=== PATIENT | female | born 1945 | race Caucasian/White ===

== ENCOUNTER 2020-01-29 12:58 | Inpatient (IN) | payer MEDICARE ==
[~2020-01-29] VITALS: Ht 167.6 cm; Wt 51.3 kg
[2020-01-29 15:28] VITALS: BP 180/77
[2020-01-29 16:43] LABS: BASOPHILS % 0.3 % (0.0-1.0); HEMATOCRIT 34.9 % (34.2-44.1); HEMOGLOBIN 11.7 g/dL (12.0-16.0); LYMPHOCYTES # (AUTO) 1.4 (1.0-3.2); LYMPHOCYTES % 18.8 % (18.0-39.1); MEAN CORPUSCULAR HEMOGLOBIN 30.8 pg (28-32); MEAN CORPUSCULAR HGB CONC 33.5 g/dL (31-35); MEAN CORPUSCULAR VOLUME 91.8 fL (81-99); MONOCYTES # (AUTO) 0.2 (0.2-0.8); MONOCYTES % 2.2 % (4.4-11.3); NEUTROPHILS % 78.2 % (38.7-80.0); PLATELET COUNT 222 x10e3/uL (140-360); RED CELL DISTRIBUTION WIDTH 12.7 % (11.7-14.4)
[2020-01-29 17:04] LABS: ALANINE AMINOTRANSFERASE 14 IU/L (0-55); ALBUMIN 4.3 g/dL (3.5-5.0); ALBUMIN/GLOBULIN RATIO 1.5 (0.8-2.0); ALKALINE PHOSPHATASE 24 IU/L (40-150); ANION GAP 15.4 mmol/L (8-16); BLOOD UREA NITROGEN 11 mg/dL (7-26); BUN/CREATININE RATIO 13 (6-25); CALCIUM 9.3 mg/dL (8.4-10.2); CARBON DIOXIDE 23 mmol/L (22-29); CHLORIDE 102 mmol/L (98-107); CREATININE, SERUM 0.84 mg/dL (0.57-1.11); EST GLOMERULAR FILTRATION RATE > 60 ML/MIN (60-); GLUCOSE 125 mg/dL (74-118); POTASSIUM 4.4 mmol/L (3.5-5.1); SODIUM 136 mmol/L (136-145)
[2020-01-29 17:27] LABS: ERYTHROCYTE SEDIMENTATION RATE 18 mm/hr (0-20)
[2020-01-29] MEDS ORDERED: ACETAMINOPHEN 325 MG TAB PO PRN (17:30)
[2020-01-29 18:05] VITALS: BP 180/77
[2020-01-29] MEDS ORDERED: METOPROLOL SUCC25 MG PO (18:18)
[2020-01-29] MEDS ORDERED: LEVOTHYROXINE50 MCG PO (18:18)
[2020-01-29] MEDS ORDERED: CENTRUM CHEWAB1 EAC1 PO (18:18)
[2020-01-29] MEDS ORDERED: LOSARTAN POTASS25 MG PO (18:18)
[2020-01-29] MEDS ORDERED: ACETAMINOPHEN325 M1 PO (18:18)
[2020-01-29] MEDS ORDERED: HYDROXYCHLOROQ200 MG PO (18:18)
[2020-01-29] MEDS ORDERED: CALCIUM CARBON500 MG PO (18:18)
[2020-01-29] MEDS ORDERED: REMICADE100 MG/VIA (18:18)
[2020-01-29] MEDS ORDERED: ZYRTEC10 MG PO (18:18)
[2020-01-29] MEDS ORDERED: PANTOPRAZOLE SO40 MG PO (18:18)
[2020-01-29] MEDS ORDERED: PROLIA60 MG/1 ML (18:18)
[2020-01-29] MEDS ORDERED: PREDNISONE5 MG PO (18:18)
[2020-01-29] MEDS ORDERED: DEXTROSE 5% IV PRN (19:15)
[2020-01-29] MEDS: SODIUM CHLORIDE 0.45% 1,000 ML IV SCH (19:20)
[2020-01-29] MEDS: DIPHENHYDRAMINE HCL INJ 50 MG/ML VIAL IV SCH (20:06)
[2020-01-29 20:13] VITALS: BP 189/77
[2020-01-29 21:00] VITALS: BP 174/74
[2020-01-29] MEDS: AMPHOTERICIN B IV SCH (21:00)
[2020-01-29] MEDS: DEXTROSE 5% IV SCH (21:00)
[2020-01-29] MEDS: NIFEDIPINE CR 30 MG TAB PO SCH (22:15)
[2020-01-29] MEDS: HYDROCODONE/APAP 5MG-325MG TAB PO PRN (22:15)
[2020-01-29] MEDS ORDERED: MELATONIN 5 MG TABLET PO PRN (23:45)
[2020-01-29] MEDS ORDERED: DOCUSATE SODIUM 100 MG CAP PO PRN (23:45)
[2020-01-29] MEDS ORDERED: HYDRALAZINE HCL 20 MG/ML VIAL IV PRN (23:45)
[2020-01-29 23:55] VITALS: BP 176/78
[2020-01-30 05:08] VITALS: BP 136/65
[2020-01-30] MEDS: HYDROCODONE/APAP 5MG-325MG TAB PO PRN ×2 (05:10→10:33)
[2020-01-30 06:19] LABS: BASOPHILS % 0.2 % (0.0-1.0); EOSINOPHILS % 0.2 % (0.0-6.0); HEMATOCRIT 35.7 % (34.2-44.1); HEMOGLOBIN 12.6 g/dL (12.0-16.0); LYMPHOCYTES # (AUTO) 3.8 (1.0-3.2); LYMPHOCYTES % 38.2 % (18.0-39.1); MEAN CORPUSCULAR HEMOGLOBIN 33.3 pg (28-32); MEAN CORPUSCULAR HGB CONC 35.3 g/dL (31-35); MEAN CORPUSCULAR VOLUME 94.4 fL (81-99); MONOCYTES % 9.8 % (4.4-11.3); NEUTROPHILS # (AUTO) 5.1 (2.1-6.9); NEUTROPHILS % 51.2 % (38.7-80.0); PLATELET COUNT 206 x10e3/uL (140-360); RED BLOOD COUNT 3.78 x10e6/uL (3.6-5.1)
[2020-01-30 06:31] LABS: ALANINE AMINOTRANSFERASE 14 IU/L (0-55); ALBUMIN 4.3 g/dL (3.5-5.0); ALBUMIN/GLOBULIN RATIO 1.7 (0.8-2.0); ALKALINE PHOSPHATASE 23 IU/L (40-150); ANION GAP 14.8 mmol/L (8-16); BLOOD UREA NITROGEN 12 mg/dL (7-26); BUN/CREATININE RATIO 16 (6-25); CALCIUM 9.1 mg/dL (8.4-10.2); CARBON DIOXIDE 25 mmol/L (22-29); CHLORIDE 103 mmol/L (98-107); CREATININE, SERUM 0.75 mg/dL (0.57-1.11); EST GLOMERULAR FILTRATION RATE > 60 ML/MIN (60-); GLUCOSE 72 mg/dL (74-118); MAGNESIUM 1.9 MG/DL (1.3-2.1); POTASSIUM 3.8 mmol/L (3.5-5.1); SODIUM 139 mmol/L (136-145)
[2020-01-30] MEDS: LEVOTHYROXINE SODIUM 50 MCG TAB PO SCH (06:40)
[2020-01-30 07:16] VITALS: BP 152/63
[2020-01-30] MEDS ORDERED: PANTOPRAZOLE SOD 40 MG TABEC PO SCH (07:30)
[2020-01-30] MEDS: SODIUM CHLORIDE 0.45% 1,000 ML IV SCH (08:20)
[2020-01-30] MEDS: HYDROXYCHLOROQUINE SULFATE 200 MG TAB PO SCH (08:56)
[2020-01-30] MEDS: LOSARTAN POTASSIUM 25 MG TAB PO SCH (08:56)
[2020-01-30] MEDS: NIFEDIPINE CR 30 MG TAB PO SCH (08:57)
[2020-01-30] MEDS ORDERED: METOPROLOL SUCCINATE 25 MG TAB XL PO SCH (09:00)
[2020-01-30] MEDS ORDERED: PREDNISONE 5 MG TAB PO SCH (09:00)
[2020-01-30] MEDS: PREDNISONE 5 MG TAB PO SCH (09:00)
[2020-01-30 11:01] VITALS: BP 131/55
[2020-01-30] MEDS: PANTOPRAZOLE SOD 40 MG TABEC PO SCH (11:07)
[2020-01-30 15:36] VITALS: BP 141/64
[2020-01-30] MEDS: DIPHENHYDRAMINE HCL INJ 50 MG/ML VIAL IV SCH (16:39)
[2020-01-30] MEDS: DEXTROSE 5% IV SCH (17:33)
[2020-01-30] MEDS: AMPHOTERICIN B IV SCH (17:33)
[2020-01-30] MEDS: HYDROCODONE/APAP 7.5MG-325MG 1 EA TAB PO PRN (18:00)
[2020-01-30 19:55] VITALS: BP 130/53
[2020-01-30 19:57] VITALS: BP 130/53
[2020-01-30] MEDS: METOPROLOL SUCCINATE 25 MG TAB XL PO SCH (20:15)
[2020-01-30] MEDS: LORATADINE 10 MG TAB PO SCH (20:15)
[2020-01-31] VITALS (8 sets, daily range): BP systolic 95–131; BP diastolic 48–75
[2020-01-31] MEDS: SODIUM CHLORIDE 0.45% 1,000 ML IV SCH ×2 (02:28→22:28)
[2020-01-31 05:08] LABS: BASOPHILS % 0.1 % (0.0-1.0); EOSINOPHILS # (AUTO) 0.1 (0.0-0.4); EOSINOPHILS % 0.5 % (0.0-6.0); HEMATOCRIT 30.8 % (34.2-44.1); HEMOGLOBIN 10.4 g/dL (12.0-16.0); LYMPHOCYTES # (AUTO) 3.6 (1.0-3.2); LYMPHOCYTES % 38.4 % (18.0-39.1); MEAN CORPUSCULAR HEMOGLOBIN 31.3 pg (28-32); MEAN CORPUSCULAR HGB CONC 33.8 g/dL (31-35); MEAN CORPUSCULAR VOLUME 92.8 fL (81-99); MONOCYTES % 10.3 % (4.4-11.3); NEUTROPHILS # (AUTO) 4.7 (2.1-6.9); NEUTROPHILS % 50.4 % (38.7-80.0); PLATELET COUNT 199 x10e3/uL (140-360); RED BLOOD COUNT 3.32 x10e6/uL (3.6-5.1); RED CELL DISTRIBUTION WIDTH 12.7 % (11.7-14.4)
[2020-01-31] MEDS: LEVOTHYROXINE SODIUM 50 MCG TAB PO SCH (05:21)
[2020-01-31 05:27] LABS: ALANINE AMINOTRANSFERASE 13 IU/L (0-55); ALBUMIN 3.8 g/dL (3.5-5.0); ALBUMIN/GLOBULIN RATIO 1.7 (0.8-2.0); ALKALINE PHOSPHATASE 23 IU/L (40-150); ANION GAP 10.3 mmol/L (8-16); BLOOD UREA NITROGEN 11 mg/dL (7-26); BUN/CREATININE RATIO 15 (6-25); CALCIUM 8.7 mg/dL (8.4-10.2); CARBON DIOXIDE 26 mmol/L (22-29); CHLORIDE 104 mmol/L (98-107); CREATININE, SERUM 0.72 mg/dL (0.57-1.11); EST GLOMERULAR FILTRATION RATE > 60 ML/MIN (60-); GLUCOSE 79 mg/dL (74-118); POTASSIUM 4.3 mmol/L (3.5-5.1); SODIUM 136 mmol/L (136-145)
[2020-01-31] MEDS: HYDROCODONE/APAP 7.5MG-325MG 1 EA TAB PO PRN ×4 (07:12→20:30)
[2020-01-31] MEDS: HYDROXYCHLOROQUINE SULFATE 200 MG TAB PO SCH (09:00)
[2020-01-31] MEDS: PREDNISONE 5 MG TAB PO SCH (09:00)
[2020-01-31] MEDS: NIFEDIPINE CR 30 MG TAB PO SCH (09:00)
[2020-01-31] MEDS: LOSARTAN POTASSIUM 25 MG TAB PO SCH (09:00)
[2020-01-31] MEDS: PANTOPRAZOLE SOD 40 MG TABEC PO SCH (11:30)
[2020-01-31] MEDS: DIPHENHYDRAMINE HCL INJ 50 MG/ML VIAL IV SCH (16:00)
[2020-01-31] MEDS: ENOXAPARIN SOD INJ 40 MG/0.4 ML SYR SC SCH (16:49)
[2020-01-31] MEDS: DEXTROSE 5% IV SCH (17:00)
[2020-01-31] MEDS: AMPHOTERICIN B IV SCH (17:00)
[2020-01-31] MEDS: LORATADINE 10 MG TAB PO SCH (20:39)
[2020-01-31] MEDS: METOPROLOL SUCCINATE 25 MG TAB XL PO SCH (21:00)
[2020-02-01] VITALS (8 sets, daily range): BP systolic 116–148; BP diastolic 55–68
[2020-02-01] MEDS: SODIUM CHLORIDE 0.45% 1,000 ML IV SCH ×2 (01:21→17:40)
[2020-02-01] MEDS: HYDROCODONE/APAP 7.5MG-325MG 1 EA TAB PO PRN ×3 (02:24→19:43)
[2020-02-01] MEDS: LEVOTHYROXINE SODIUM 50 MCG TAB PO SCH (05:22)
[2020-02-01 05:40] LABS: BASOPHILS % 0.1 % (0.0-1.0); EOSINOPHILS # (AUTO) 0.1 (0.0-0.4); EOSINOPHILS % 0.6 % (0.0-6.0); HEMATOCRIT 31.8 % (34.2-44.1); HEMOGLOBIN 10.5 g/dL (12.0-16.0); LYMPHOCYTES # (AUTO) 3.6 (1.0-3.2); LYMPHOCYTES % 35.4 % (18.0-39.1); MEAN CORPUSCULAR HEMOGLOBIN 30.9 pg (28-32); MEAN CORPUSCULAR VOLUME 93.5 fL (81-99); MONOCYTES # (AUTO) 1.1 (0.2-0.8); MONOCYTES % 11.2 % (4.4-11.3); NEUTROPHILS # (AUTO) 5.3 (2.1-6.9); NEUTROPHILS % 52.3 % (38.7-80.0); PLATELET COUNT 205 x10e3/uL (140-360); RED CELL DISTRIBUTION WIDTH 12.8 % (11.7-14.4)
[2020-02-01 06:21] LABS: ALANINE AMINOTRANSFERASE 15 IU/L (0-55); ALBUMIN 3.4 g/dL (3.5-5.0); ALBUMIN/GLOBULIN RATIO 1.3 (0.8-2.0); ALKALINE PHOSPHATASE 22 IU/L (40-150); ANION GAP 10.5 mmol/L (8-16); BLOOD UREA NITROGEN 11 mg/dL (7-26); BUN/CREATININE RATIO 14 (6-25); CALCIUM 8.8 mg/dL (8.4-10.2); CARBON DIOXIDE 28 mmol/L (22-29); CHLORIDE 104 mmol/L (98-107); CREATININE, SERUM 0.76 mg/dL (0.57-1.11); EST GLOMERULAR FILTRATION RATE > 60 ML/MIN (60-); GLUCOSE 78 mg/dL (74-118); POTASSIUM 4.5 mmol/L (3.5-5.1); SODIUM 138 mmol/L (136-145)
[2020-02-01] MEDS: NIFEDIPINE CR 30 MG TAB PO SCH (09:00)
[2020-02-01] MEDS: PREDNISONE 5 MG TAB PO SCH (09:00)
[2020-02-01] MEDS: HYDROXYCHLOROQUINE SULFATE 200 MG TAB PO SCH (09:00)
[2020-02-01] MEDS: LOSARTAN POTASSIUM 25 MG TAB PO SCH (09:00)
[2020-02-01] MEDS: PANTOPRAZOLE SOD 40 MG TABEC PO SCH (11:30)
[2020-02-01] MEDS: DIPHENHYDRAMINE HCL INJ 50 MG/ML VIAL IV SCH (16:00)
[2020-02-01] MEDS: ENOXAPARIN SOD INJ 40 MG/0.4 ML SYR SC SCH (16:43)
[2020-02-01] MEDS: DEXTROSE 5% IV SCH (17:00)
[2020-02-01] MEDS: AMPHOTERICIN B IV SCH (17:00)
[2020-02-01] MEDS: METOPROLOL SUCCINATE 25 MG TAB XL PO SCH (21:00)
[2020-02-01] MEDS: LORATADINE 10 MG TAB PO SCH (21:00)
[2020-02-02] VITALS (8 sets, daily range): BP systolic 124–158; BP diastolic 46–68
[2020-02-02] MEDS: HYDROCODONE/APAP 7.5MG-325MG 1 EA TAB PO PRN ×4 (01:30→21:45)
[2020-02-02] MEDS: DEXTROSE 5% IV SCH ×2 (02:43→17:00)
[2020-02-02] MEDS: AMPHOTERICIN B IV SCH ×2 (02:43→17:00)
[2020-02-02] MEDS: LEVOTHYROXINE SODIUM 50 MCG TAB PO SCH (07:30)
[2020-02-02 08:53] LABS: BASOPHILS % 0.3 % (0.0-1.0); EOSINOPHILS # (AUTO) 0.1 (0.0-0.4); EOSINOPHILS % 0.7 % (0.0-6.0); HEMATOCRIT 35.1 % (34.2-44.1); HEMOGLOBIN 11.5 g/dL (12.0-16.0); LYMPHOCYTES # (AUTO) 5.3 (1.0-3.2); LYMPHOCYTES % 49.7 % (18.0-39.1); MEAN CORPUSCULAR HEMOGLOBIN 30.9 pg (28-32); MEAN CORPUSCULAR HGB CONC 32.8 g/dL (31-35); MEAN CORPUSCULAR VOLUME 94.4 fL (81-99); MONOCYTES % 9.1 % (4.4-11.3); NEUTROPHILS # (AUTO) 4.3 (2.1-6.9); NEUTROPHILS % 39.8 % (38.7-80.0); PLATELET COUNT 225 x10e3/uL (140-360); RED BLOOD COUNT 3.72 x10e6/uL (3.6-5.1); RED CELL DISTRIBUTION WIDTH 12.7 % (11.7-14.4)
[2020-02-02] MEDS: LOSARTAN POTASSIUM 25 MG TAB PO SCH (09:00)
[2020-02-02] MEDS: NIFEDIPINE CR 30 MG TAB PO SCH (09:00)
[2020-02-02] MEDS: PREDNISONE 5 MG TAB PO SCH (09:00)
[2020-02-02] MEDS: HYDROXYCHLOROQUINE SULFATE 200 MG TAB PO SCH (09:00)
[2020-02-02] MEDS: PANTOPRAZOLE SOD 40 MG TABEC PO SCH ×2 (09:16→13:00)
[2020-02-02 09:26] LABS: ALANINE AMINOTRANSFERASE 19 IU/L (0-55); ALBUMIN 3.7 g/dL (3.5-5.0); ALBUMIN/GLOBULIN RATIO 1.2 (0.8-2.0); ALKALINE PHOSPHATASE 25 IU/L (40-150); ANION GAP 11.9 mmol/L (8-16); BLOOD UREA NITROGEN 13 mg/dL (7-26); BUN/CREATININE RATIO 14 (6-25); CALCIUM 9.1 mg/dL (8.4-10.2); CARBON DIOXIDE 29 mmol/L (22-29); CHLORIDE 101 mmol/L (98-107); EST GLOMERULAR FILTRATION RATE > 60 ML/MIN (60-); GLUCOSE 98 mg/dL (74-118); POTASSIUM 3.9 mmol/L (3.5-5.1); SODIUM 138 mmol/L (136-145)
[2020-02-02] MEDS: SODIUM CHLORIDE 0.45% 1,000 ML IV SCH (14:28)
[2020-02-02] MEDS: DIPHENHYDRAMINE HCL INJ 50 MG/ML VIAL IV SCH (16:00)
[2020-02-02] MEDS: ENOXAPARIN SOD INJ 40 MG/0.4 ML SYR SC SCH (16:16)
[2020-02-02] MEDS: LORATADINE 10 MG TAB PO SCH (20:19)
[2020-02-02] MEDS: METOPROLOL SUCCINATE 25 MG TAB XL PO SCH (20:20)
[2020-02-03] VITALS (8 sets, daily range): BP systolic 113–151; BP diastolic 54–80
[2020-02-03] MEDS: HYDROCODONE/APAP 7.5MG-325MG 1 EA TAB PO PRN ×4 (03:55→22:18)
[2020-02-03] MEDS: LEVOTHYROXINE SODIUM 50 MCG TAB PO SCH (06:58)
[2020-02-03 07:35] LABS: BASOPHILS % 0.2 % (0.0-1.0); EOSINOPHILS # (AUTO) 0.1 (0.0-0.4); EOSINOPHILS % 0.4 % (0.0-6.0); HEMOGLOBIN 11.4 g/dL (12.0-16.0); LYMPHOCYTES # (AUTO) 4.2 (1.0-3.2); MEAN CORPUSCULAR HEMOGLOBIN 31.4 pg (28-32); MEAN CORPUSCULAR HGB CONC 33.5 g/dL (31-35); MEAN CORPUSCULAR VOLUME 93.7 fL (81-99); MONOCYTES # (AUTO) 1.2 (0.2-0.8); MONOCYTES % 10.2 % (4.4-11.3); NEUTROPHILS # (AUTO) 6.5 (2.1-6.9); NEUTROPHILS % 53.7 % (38.7-80.0); PLATELET COUNT 204 x10e3/uL (140-360); RED BLOOD COUNT 3.63 x10e6/uL (3.6-5.1); RED CELL DISTRIBUTION WIDTH 12.5 % (11.7-14.4)
[2020-02-03 08:04] LABS: ALBUMIN 3.4 g/dL (3.5-5.0); ALBUMIN/GLOBULIN RATIO 1.3 (0.8-2.0); ANION GAP 11.9 mmol/L (8-16); CALCIUM 8.8 mg/dL (8.4-10.2); CREATININE, SERUM 0.95 mg/dL (0.57-1.11); POTASSIUM 3.9 mmol/L (3.5-5.1)
[2020-02-03] MEDS: HYDROXYCHLOROQUINE SULFATE 200 MG TAB PO SCH (08:55)
[2020-02-03] MEDS: LOSARTAN POTASSIUM 25 MG TAB PO SCH (08:55)
[2020-02-03] MEDS: NIFEDIPINE CR 30 MG TAB PO SCH (08:56)
[2020-02-03] MEDS: PREDNISONE 5 MG TAB PO SCH (08:56)
[2020-02-03] MEDS: PANTOPRAZOLE SOD 40 MG TABEC PO SCH (11:45)
[2020-02-03] MEDS: SODIUM CHLORIDE 0.45% 1,000 ML IV SCH (11:45)
[2020-02-03] MEDS: DIPHENHYDRAMINE HCL INJ 50 MG/ML VIAL IV SCH (17:49)
[2020-02-03] MEDS: AMPHOTERICIN B IV SCH (18:01)
[2020-02-03] MEDS: DEXTROSE 5% IV SCH (18:01)
[2020-02-03] MEDS: ENOXAPARIN SOD INJ 40 MG/0.4 ML SYR SC SCH (18:10)
[2020-02-03] MEDS: METOPROLOL SUCCINATE 25 MG TAB XL PO SCH (20:26)
[2020-02-03] MEDS: LORATADINE 10 MG TAB PO SCH (20:26)
[2020-02-04] VITALS: BP 127/91
[2020-02-04 04:00] VITALS: BP 147/74
[2020-02-04] MEDS: HYDROCODONE/APAP 7.5MG-325MG 1 EA TAB PO PRN (04:20)
[2020-02-04] MEDS: SODIUM CHLORIDE 0.45% 1,000 ML IV SCH (05:52)
[2020-02-04] MEDS: LEVOTHYROXINE SODIUM 50 MCG TAB PO SCH (06:30)
[2020-02-04 08:00] VITALS: BP 132/60
[2020-02-04] MEDS ORDERED: VORICONAZOLE200 MG PO (08:22)
[2020-02-04] MEDS: PREDNISONE 5 MG TAB PO SCH (08:40)
[2020-02-04] MEDS: HYDROXYCHLOROQUINE SULFATE 200 MG TAB PO SCH (08:40)
[2020-02-04] MEDS: LOSARTAN POTASSIUM 25 MG TAB PO SCH (08:40)
[2020-02-04] MEDS: NIFEDIPINE CR 30 MG TAB PO SCH (08:40)
[2020-02-28] MEDS ORDERED: AMPHOTERICIN B LIPID COMPLEX IV SCH (21:00)
== END 2020-02-04 09:52 | disposition home or self-care (01) | DRG 868 ==
LOC: MED/SURG2 14:38
PROVIDERS: ADMIT Internal Medicine; ATTEND Internal Medicine
DX: B42.9 Sporotrichosis, unspecified (principal); D84.9 Immunodeficiency, unspecified; M06.9 Rheumatoid arthritis, unspecified; I10 Essential (primary) hypertension; Z11.59 Encounter for screening for other viral diseases
CPT/HCPCS: 36415; 71046; 80053; 83735; 85025; 85651; 86140; 87040; J0285; J1200; J1650; J7512; U0002

== ENCOUNTER 2020-09-22 11:54 | Inpatient (IN) | payer MEDICARE ==
[~2020-09-22] VITALS: Ht 167.6 cm; Wt 51.3 kg
[~2020-09-22 11:54] MED LIST: ACETAMINOPHEN325 M1 PO; CALCIUM CARBON500 MG PO; CENTRUM CHEWAB1 EAC1 PO; HYDROXYCHLOROQ200 MG PO; LEVOTHYROXINE50 MCG PO; LOSARTAN POTASS25 MG PO; METOPROLOL SUCC25 MG PO; PANTOPRAZOLE SO40 MG PO; PREDNISONE5 MG PO; PROLIA60 MG/1 ML; REMICADE100 MG/VIA; VORICONAZOLE200 MG PO; ZYRTEC10 MG PO
[2020-09-22] MEDS ORDERED: SODIUM CHLORIDE 0.9% 1000ML 1,000 ML IV STA ×2 (12:15→12:26)
[2020-09-22] MEDS ORDERED: FENTANYL CITRATE/PF 100MCG/2 ML INJ IV NR (12:15)
[2020-09-22 12:36] LABS: BASOPHILS % 0.3 % (0.0-1.0); EOSINOPHILS % 0.2 % (0.0-6.0); HEMATOCRIT 40.1 % (34.2-44.1); HEMOGLOBIN 13.5 g/dL (12.0-16.0); LYMPHOCYTES # (AUTO) 2.5 (1.0-3.2); MEAN CORPUSCULAR HEMOGLOBIN 31.8 pg (28-32); MEAN CORPUSCULAR HGB CONC 33.7 g/dL (31-35); MEAN CORPUSCULAR VOLUME 94.4 fL (81-99); MONOCYTES # (AUTO) 1.1 (0.2-0.8); NEUTROPHILS # (AUTO) 8.1 (2.1-6.9); NEUTROPHILS % 68.6 % (38.7-80.0); PLATELET COUNT 192 x10e3/uL (140-360); RED BLOOD COUNT 4.25 x10e6/uL (3.6-5.1); RED CELL DISTRIBUTION WIDTH 13.4 % (11.7-14.4)
[2020-09-22] MEDS: ONDANSETRON HCL INJ 2MG/ML 2ML 2 MG/ML VIAL IV PRN (12:38)
[2020-09-22 12:58] LABS: ALBUMIN 3.8 g/dL (3.5-5.0); ALBUMIN/GLOBULIN RATIO 1.4 (0.8-2.0); ANION GAP 15.9 mmol/L (8-16); CALCIUM 9.2 mg/dL (8.4-10.2); CREATININE, SERUM 1.03 mg/dL (0.57-1.11); POTASSIUM 3.9 mmol/L (3.5-5.1)
[2020-09-22] MEDS ORDERED: IOPAMIDOL 370 MG/ML 200 ML INFUS..BTL INJ ONE (13:23)
[2020-09-22] MEDS ORDERED: SODIUM CHLORIDE 0.9% 50ML 50 ML ONE (13:23)
[2020-09-22 14:30] LABS: CLARITY,URINE CLEAR (CLEAR); COLOR,URINE YELLOW (YELLOW); KETONES,URINE NEGATIVE (NEGATIVE); LEUKOCYTE ESTERASE ,URINE MODERATE (NEGATIVE); NITRITE,URINE NEGATIVE (NEGATIVE); PROTEIN,URINE DIPSTICK NEGATIVE (NEGATIVE); URINE UROBILINOGEN 0.2 mg/dL (0.2 - 1)
[2020-09-22 14:41] LABS: BACTERIA,URINE MODERATE /HPF; EPITHELIAL CELLS,URINE FEW /LPF; RBC,URINE 0-5 /HPF (0-5)
[2020-09-22] MEDS ORDERED: DICYCLOMINE HCL 20 MG/2 ML VIAL IM ONE (14:45)
[2020-09-22] MEDS ORDERED: CEFTRIAXONE 1 GM VIAL IV SCH (15:00)
[2020-09-22] MEDS: SODIUM CHLORIDE 0.9% 1000ML 1,000 ML IV SCH ×2 (15:52→19:55)
[2020-09-22] MEDS: CEFTRIAXONE 1 GM in SODIUM CHLORIDE 0.9% 50ML 50 ML IV SCH (15:52)
[2020-09-22] MEDS: MORPHINE SULFATE INJ 4 MG/ML INJ 1ML IV PRN (15:52)
[2020-09-22] MEDS ORDERED: ITRACONAZOLE100 MG PO (18:04)
[2020-09-22 20:00] VITALS: BP 162/59
[2020-09-23] VITALS (9 sets, daily range): BP systolic 87–177; BP diastolic 53–76
[2020-09-23] MEDS: MORPHINE SULFATE INJ 4 MG/ML INJ 1ML IV PRN ×2 (04:23→08:43)
[2020-09-23] MEDS: TRAMADOL HCL 50 MG TAB PO PRN ×4 (05:28→20:30)
[2020-09-23 05:29] LABS: BASOPHILS % 0.3 % (0.0-1.0); EOSINOPHILS % 0.3 % (0.0-6.0); HEMATOCRIT 32.8 % (34.2-44.1); HEMOGLOBIN 10.8 g/dL (12.0-16.0); LYMPHOCYTES % 21.3 % (18.0-39.1); MEAN CORPUSCULAR HEMOGLOBIN 31.8 pg (28-32); MEAN CORPUSCULAR HGB CONC 32.9 g/dL (31-35); MEAN CORPUSCULAR VOLUME 96.5 fL (81-99); MONOCYTES % 10.9 % (4.4-11.3); NEUTROPHILS # (AUTO) 6.1 (2.1-6.9); NEUTROPHILS % 66.3 % (38.7-80.0); PLATELET COUNT 155 x10e3/uL (140-360); RED CELL DISTRIBUTION WIDTH 13.5 % (11.7-14.4)
[2020-09-23] MEDS ORDERED: TYLENOL ARTHRITIS PO (05:51)
[2020-09-23] MEDS ORDERED: ATORVASTATIN CA10 MG PO (05:51)
[2020-09-23] MEDS ORDERED: ULTRAM50 MG PO (05:51)
[2020-09-23 05:53] LABS: BLOOD UREA NITROGEN 15 mg/dL (7-26); BUN/CREATININE RATIO 21 (6-25); CALCIUM 7.6 mg/dL (8.4-10.2); CARBON DIOXIDE 20 mmol/L (22-29); CHLORIDE 107 mmol/L (98-107); EST GLOMERULAR FILTRATION RATE > 60 ML/MIN (60-); GLUCOSE 65 mg/dL (74-118); SODIUM 137 mmol/L (136-145)
[2020-09-23] MEDS: ONDANSETRON HCL INJ 2MG/ML 2ML 2 MG/ML VIAL IV PRN ×2 (08:59→16:17)
[2020-09-23] MEDS: SODIUM CHLORIDE 0.9% 1000ML 1,000 ML IV SCH ×3 (08:59→22:26)
[2020-09-23] MEDS ORDERED: METOPROLOL TARTRATE INJ 1 MG/ML VIAL IV ONE (13:00)
[2020-09-23] MEDS: METOPROLOL TARTRATE 25 MG TAB PO SCH ×2 (13:03→16:23)
[2020-09-23] MEDS: CEFTRIAXONE 1 GM in SODIUM CHLORIDE 0.9% 50ML 50 ML IV SCH (14:45)
[2020-09-23] MEDS: POLYETHYLENE GLYCOL 3350 17 GM PACK PO SCH (19:30)
[2020-09-23] MEDS ORDERED: LACTULOSE SYRUP 20 GM/30 ML UDC PO PRN (19:30)
[2020-09-23] MEDS: DOCUSATE SODIUM 100 MG CAP PO SCH (20:02)
[2020-09-24 01:55] VITALS: BP 137/60
[2020-09-24] MEDS: MORPHINE SULFATE INJ 4 MG/ML INJ 1ML IV PRN ×2 (03:36→16:08)
[2020-09-24] MEDS: ONDANSETRON HCL INJ 2MG/ML 2ML 2 MG/ML VIAL IV PRN ×2 (03:36→17:27)
[2020-09-24] MEDS: METOPROLOL TARTRATE 25 MG TAB PO SCH ×2 (05:18)
[2020-09-24] MEDS: LEVOTHYROXINE SODIUM 50 MCG TAB PO SCH (05:19)
[2020-09-24 05:23] VITALS: BP 140/63
[2020-09-24 05:26] LABS: BASOPHILS % 0.3 % (0.0-1.0); EOSINOPHILS % 0.3 % (0.0-6.0); HEMATOCRIT 32.4 % (34.2-44.1); HEMOGLOBIN 10.7 g/dL (12.0-16.0); LYMPHOCYTES # (AUTO) 1.4 (1.0-3.2); LYMPHOCYTES % 17.7 % (18.0-39.1); MEAN CORPUSCULAR HEMOGLOBIN 31.8 pg (28-32); MEAN CORPUSCULAR VOLUME 96.1 fL (81-99); MONOCYTES # (AUTO) 0.8 (0.2-0.8); MONOCYTES % 10.6 % (4.4-11.3); NEUTROPHILS # (AUTO) 5.6 (2.1-6.9); NEUTROPHILS % 70.2 % (38.7-80.0); PLATELET COUNT 154 x10e3/uL (140-360); RED BLOOD COUNT 3.37 x10e6/uL (3.6-5.1); RED CELL DISTRIBUTION WIDTH 13.7 % (11.7-14.4)
[2020-09-24 05:45] LABS: BLOOD UREA NITROGEN 9 mg/dL (7-26); BUN/CREATININE RATIO 14 (6-25); CARBON DIOXIDE 19 mmol/L (22-29); CHLORIDE 106 mmol/L (98-107); CREATININE, SERUM 0.65 mg/dL (0.57-1.11); EST GLOMERULAR FILTRATION RATE > 60 ML/MIN (60-); GLUCOSE 84 mg/dL (74-118); SODIUM 134 mmol/L (136-145)
[2020-09-24] MEDS: TRAMADOL HCL 50 MG TAB PO PRN ×3 (06:32→19:45)
[2020-09-24 08:23] VITALS: BP 173/80
[2020-09-24] MEDS: POLYETHYLENE GLYCOL 3350 17 GM PACK PO SCH ×2 (09:01→17:00)
[2020-09-24] MEDS: SODIUM CHLORIDE 0.9% 1000ML 1,000 ML IV SCH ×2 (09:01→16:07)
[2020-09-24] MEDS: LOSARTAN POTASSIUM 25 MG TAB PO SCH (09:01)
[2020-09-24] MEDS: PREDNISONE 5 MG TAB PO SCH (09:01)
[2020-09-24] MEDS: DOCUSATE SODIUM 100 MG CAP PO SCH ×3 (09:01→19:45)
[2020-09-24] MEDS: METOPROLOL SUCCINATE 50 MG TAB XL PO SCH (11:22)
[2020-09-24 11:44] VITALS: BP 178/63
[2020-09-24] MEDS ORDERED: HYDRALAZINE HCL 20 MG/ML VIAL IV ONE (15:31)
[2020-09-24] MEDS: CEFTRIAXONE 1 GM in SODIUM CHLORIDE 0.9% 50ML 50 ML IV SCH (16:07)
[2020-09-24] MEDS ORDERED: FUROSEMIDE INJ 10 MG/ML 2 ML VIAL IV ONE (18:15)
[2020-09-24 20:00] VITALS: BP 135/107
[2020-09-25] VITALS (8 sets, daily range): BP systolic 126–164; BP diastolic 56–90
[2020-09-25] MEDS: TRAMADOL HCL 50 MG TAB PO PRN ×2 (00:33→09:47)
[2020-09-25] MEDS: ONDANSETRON HCL INJ 2MG/ML 2ML 2 MG/ML VIAL IV PRN ×2 (05:37→10:43)
[2020-09-25] MEDS: MORPHINE SULFATE INJ 4 MG/ML INJ 1ML IV PRN ×3 (05:37→21:27)
[2020-09-25] MEDS: LEVOTHYROXINE SODIUM 50 MCG TAB PO SCH (05:38)
[2020-09-25 05:39] LABS: BASOPHILS % 0.1 % (0.0-1.0); EOSINOPHILS % 0.1 % (0.0-6.0); HEMATOCRIT 32.4 % (34.2-44.1); HEMOGLOBIN 10.9 g/dL (12.0-16.0); LYMPHOCYTES # (AUTO) 1.4 (1.0-3.2); LYMPHOCYTES % 11.8 % (18.0-39.1); MEAN CORPUSCULAR HEMOGLOBIN 32.1 pg (28-32); MEAN CORPUSCULAR HGB CONC 33.6 g/dL (31-35); MEAN CORPUSCULAR VOLUME 95.3 fL (81-99); MONOCYTES # (AUTO) 1.3 (0.2-0.8); NEUTROPHILS # (AUTO) 8.8 (2.1-6.9); NEUTROPHILS % 76.3 % (38.7-80.0); PLATELET COUNT 168 x10e3/uL (140-360); RED CELL DISTRIBUTION WIDTH 13.8 % (11.7-14.4)
[2020-09-25 05:59] LABS: ANION GAP 15.6 mmol/L (8-16); BLOOD UREA NITROGEN 12 mg/dL (7-26); BUN/CREATININE RATIO 17 (6-25); CALCIUM 7.2 mg/dL (8.4-10.2); CARBON DIOXIDE 16 mmol/L (22-29); CHLORIDE 107 mmol/L (98-107); CREATININE, SERUM 0.72 mg/dL (0.57-1.11); EST GLOMERULAR FILTRATION RATE > 60 ML/MIN (60-); GLUCOSE 98 mg/dL (74-118); POTASSIUM 3.6 mmol/L (3.5-5.1); SODIUM 135 mmol/L (136-145)
[2020-09-25] MEDS: METOPROLOL SUCCINATE 50 MG TAB XL PO SCH ×2 (07:59→16:53)
[2020-09-25] MEDS: LOSARTAN POTASSIUM 25 MG TAB PO SCH (09:00)
[2020-09-25] MEDS: POLYETHYLENE GLYCOL 3350 17 GM PACK PO SCH ×3 (09:00→17:00)
[2020-09-25] MEDS: DOCUSATE SODIUM 100 MG CAP PO SCH ×4 (09:00→21:00)
[2020-09-25] MEDS: PREDNISONE 5 MG TAB PO SCH (09:35)
[2020-09-25] MEDS ORDERED: ALBUTEROL/IPRATROPIUM 3 ML NEB NEB PRN (14:00)
[2020-09-25] MEDS ORDERED: FUROSEMIDE INJ 10 MG/ML 2 ML VIAL IV ONE (15:00)
[2020-09-25] MEDS ORDERED: DILTIAZEM HCL 5 MG/ML 5 ML VIAL IV ONE (15:22)
[2020-09-25] MEDS ORDERED: ONDANSETRON HCL 4 MG ORAL DISINTEGRATING TAB PO PRN (15:30)
[2020-09-25] MEDS ORDERED: AMIODARONE 900MG 500 ML IV ONE (15:45)
[2020-09-25] MEDS: CEFTRIAXONE 1 GM in SODIUM CHLORIDE 0.9% 50ML 50 ML IV SCH (15:58)
[2020-09-25] MEDS ORDERED: METOPROLOL SUCCINATE 25 MG TAB XL PO ONE (16:45)
[2020-09-25] MEDS ORDERED: METOPROLOL TARTRATE INJ 1 MG/ML VIAL IV ONE (17:00)
[2020-09-25] MEDS: HYDROXYCHLOROQUINE SULFATE 200 MG TAB PO SCH (18:46)
[2020-09-25] MEDS: ITRACONAZOLE PO SCH (18:48)
[2020-09-25] MEDS ORDERED: PANTOPRAZOLE 40 MG 10ML VIAL IV STA (20:46)
[2020-09-25] MEDS ORDERED: MAGNESIUM SULF 1GRAM/DEXTROSE 100 ML IV ONE (21:15)
[2020-09-25] MEDS: ENOXAPARIN SOD INJ 60 MG/0.6 ML SYR SC SCH (23:52)
[2020-09-26] VITALS (9 sets, daily range): BP systolic 129–172; BP diastolic 51–96
[2020-09-26] MEDS: MORPHINE SULFATE INJ 4 MG/ML INJ 1ML IV PRN ×2 (03:17→11:32)
[2020-09-26 06:11] LABS: BASOPHILS % 0.1 % (0.0-1.0); EOSINOPHILS % 0.2 % (0.0-6.0); HEMATOCRIT 29.4 % (34.2-44.1); LYMPHOCYTES # (AUTO) 1.4 (1.0-3.2); LYMPHOCYTES % 12.5 % (18.0-39.1); MEAN CORPUSCULAR HEMOGLOBIN 32.1 pg (28-32); MEAN CORPUSCULAR VOLUME 94.2 fL (81-99); MONOCYTES # (AUTO) 1.3 (0.2-0.8); MONOCYTES % 12.2 % (4.4-11.3); NEUTROPHILS # (AUTO) 8.1 (2.1-6.9); NEUTROPHILS % 74.5 % (38.7-80.0); PLATELET COUNT 169 x10e3/uL (140-360); RED BLOOD COUNT 3.12 x10e6/uL (3.6-5.1); RED CELL DISTRIBUTION WIDTH 13.6 % (11.7-14.4)
[2020-09-26] MEDS: FUROSEMIDE INJ 10 MG/ML 2 ML VIAL IV SCH ×2 (06:17→18:00)
[2020-09-26] MEDS: LEVOTHYROXINE SODIUM 50 MCG TAB PO SCH (06:19)
[2020-09-26] MEDS: METOPROLOL TARTRATE 25 MG TAB PO SCH ×5 (06:19→20:02)
[2020-09-26] MEDS: TRAMADOL HCL 50 MG TAB PO PRN (06:26)
[2020-09-26 06:30] LABS: ANION GAP 13.9 mmol/L (8-16); BLOOD UREA NITROGEN 14 mg/dL (7-26); BUN/CREATININE RATIO 20 (6-25); CALCIUM 7.3 mg/dL (8.4-10.2); CARBON DIOXIDE 19 mmol/L (22-29); CHLORIDE 104 mmol/L (98-107); CREATININE, SERUM 0.69 mg/dL (0.57-1.11); EST GLOMERULAR FILTRATION RATE > 60 ML/MIN (60-); GLUCOSE 94 mg/dL (74-118); PHOSPHORUS 1.6 MG/DL (2.3-4.7); POTASSIUM 3.9 mmol/L (3.5-5.1); SODIUM 133 mmol/L (136-145)
[2020-09-26] MEDS: LOSARTAN POTASSIUM 25 MG TAB PO SCH (08:56)
[2020-09-26] MEDS: PANTOPRAZOLE 40 MG 10ML VIAL IV SCH (08:56)
[2020-09-26] MEDS: DOCUSATE SODIUM 100 MG CAP PO SCH ×3 (08:56→21:00)
[2020-09-26] MEDS: PREDNISONE 5 MG TAB PO SCH (08:56)
[2020-09-26] MEDS: POLYETHYLENE GLYCOL 3350 17 GM PACK PO SCH ×2 (08:57→16:53)
[2020-09-26] MEDS ORDERED: ITRACONAZOLE 100 MG CAP PO SCH (09:00)
[2020-09-26] MEDS: ENOXAPARIN SOD INJ 60 MG/0.6 ML SYR SC SCH ×2 (11:11→22:34)
[2020-09-26] MEDS ORDERED: SODIUM PHOSPHATE IN 0.9 % NACL 15 MMOL in SODIUM CHLORIDE 0.9% 250ML 250 ML IV ONE ×2 (12:45)
[2020-09-26] MEDS: PIPERACILLIN/TAZOBACTAM 3.375 GM in SODIUM CHLORIDE 0.9% 50ML 50 ML IV SCH ×2 (14:00→22:40)
[2020-09-26] MEDS ORDERED: SODIUM CHLORIDE 0.9% 250ML 250 ML ONE ×2 (15:01→22:41)
[2020-09-26] MEDS: METOPROLOL TARTRATE INJ 1 MG/ML VIAL IV PRN (20:02)
[2020-09-26] MEDS: LEVALBUTEROL HCL SOLN NEBU 0.63 MG/3 ML NEB INH SCH ×2 (20:50→22:00)
[2020-09-26] MEDS ORDERED: METOPROLOL TARTRATE INJ 1 MG/ML VIAL IV STA ×2 (21:08→22:51)
[2020-09-26] MEDS ORDERED: DIGOXIN INJ 0.25 MG/ML 2 ML AMP IV STA (22:51)
[2020-09-27] VITALS (12 sets, daily range): BP systolic 116–154; BP diastolic 63–93
[2020-09-27] MEDS: TRAMADOL HCL 50 MG TAB PO PRN ×3 (00:20→22:44)
[2020-09-27] MEDS: METOPROLOL TARTRATE 25 MG TAB PO SCH ×4 (02:43→21:00)
[2020-09-27 05:47] LABS: BASOPHILS % 0.1 % (0.0-1.0); EOSINOPHILS % 0.1 % (0.0-6.0); HEMATOCRIT 31.4 % (34.2-44.1); HEMOGLOBIN 10.5 g/dL (12.0-16.0); LYMPHOCYTES # (AUTO) 1.3 (1.0-3.2); MEAN CORPUSCULAR HEMOGLOBIN 31.9 pg (28-32); MEAN CORPUSCULAR HGB CONC 33.4 g/dL (31-35); MEAN CORPUSCULAR VOLUME 95.4 fL (81-99); MONOCYTES # (AUTO) 1.1 (0.2-0.8); MONOCYTES % 10.5 % (4.4-11.3); NEUTROPHILS # (AUTO) 7.8 (2.1-6.9); NEUTROPHILS % 75.7 % (38.7-80.0); PLATELET COUNT 196 x10e3/uL (140-360); RED BLOOD COUNT 3.29 x10e6/uL (3.6-5.1); RED CELL DISTRIBUTION WIDTH 13.6 % (11.7-14.4)
[2020-09-27 06:22] LABS: ANION GAP 14.5 mmol/L (8-16); BLOOD UREA NITROGEN 17 mg/dL (7-26); BUN/CREATININE RATIO 23 (6-25); CALCIUM 7.4 mg/dL (8.4-10.2); CARBON DIOXIDE 21 mmol/L (22-29); CHLORIDE 102 mmol/L (98-107); CREATININE, SERUM 0.74 mg/dL (0.57-1.11); EST GLOMERULAR FILTRATION RATE > 60 ML/MIN (60-); GLUCOSE 91 mg/dL (74-118); MAGNESIUM 1.9 MG/DL (1.3-2.1); PHOSPHORUS 2.5 MG/DL (2.3-4.7); POTASSIUM 3.5 mmol/L (3.5-5.1); SODIUM 134 mmol/L (136-145)
[2020-09-27] MEDS: FUROSEMIDE INJ 10 MG/ML 2 ML VIAL IV SCH (06:25)
[2020-09-27] MEDS: LEVOTHYROXINE SODIUM 50 MCG TAB PO SCH (06:25)
[2020-09-27] MEDS: PIPERACILLIN/TAZOBACTAM 3.375 GM in SODIUM CHLORIDE 0.9% 50ML 50 ML IV SCH ×3 (06:25→22:30)
[2020-09-27] MEDS: LEVALBUTEROL HCL SOLN NEBU 0.63 MG/3 ML NEB INH SCH ×5 (07:40→20:15)
[2020-09-27] MEDS: PANTOPRAZOLE 40 MG 10ML VIAL IV SCH (08:09)
[2020-09-27] MEDS: POLYETHYLENE GLYCOL 3350 17 GM PACK PO SCH ×2 (08:10→15:31)
[2020-09-27] MEDS: DOCUSATE SODIUM 100 MG CAP PO SCH ×3 (08:10→21:00)
[2020-09-27] MEDS: LOSARTAN POTASSIUM 25 MG TAB PO SCH (08:10)
[2020-09-27] MEDS: ENOXAPARIN SOD INJ 60 MG/0.6 ML SYR SC SCH ×2 (08:11→22:30)
[2020-09-27] MEDS: HYDROXYCHLOROQUINE SULFATE 200 MG TAB PO SCH (08:11)
[2020-09-27] MEDS: PREDNISONE 5 MG TAB PO SCH (08:11)
[2020-09-27] MEDS: ITRACONAZOLE PO SCH (08:25)
[2020-09-27] MEDS: MORPHINE SULFATE INJ 4 MG/ML INJ 1ML IV PRN (21:00)
[2020-09-28] VITALS (8 sets, daily range): BP systolic 130–157; BP diastolic 50–82
[2020-09-28] MEDS: METOPROLOL TARTRATE 25 MG TAB PO SCH ×4 (02:25→20:17)
[2020-09-28] MEDS: MORPHINE SULFATE INJ 4 MG/ML INJ 1ML IV PRN ×2 (04:53→20:18)
[2020-09-28 05:08] LABS: BASOPHILS % 0.1 % (0.0-1.0); EOSINOPHILS % 0.4 % (0.0-6.0); HEMATOCRIT 29.3 % (34.2-44.1); HEMOGLOBIN 9.8 g/dL (12.0-16.0); LYMPHOCYTES # (AUTO) 1.3 (1.0-3.2); LYMPHOCYTES % 16.2 % (18.0-39.1); MEAN CORPUSCULAR HGB CONC 33.4 g/dL (31-35); MEAN CORPUSCULAR VOLUME 95.8 fL (81-99); MONOCYTES # (AUTO) 0.8 (0.2-0.8); MONOCYTES % 10.5 % (4.4-11.3); NEUTROPHILS # (AUTO) 5.7 (2.1-6.9); NEUTROPHILS % 72.3 % (38.7-80.0); PLATELET COUNT 211 x10e3/uL (140-360); RED BLOOD COUNT 3.06 x10e6/uL (3.6-5.1); RED CELL DISTRIBUTION WIDTH 13.8 % (11.7-14.4)
[2020-09-28 06:04] LABS: ANION GAP 12.2 mmol/L (8-16); BLOOD UREA NITROGEN 26 mg/dL (7-26); BUN/CREATININE RATIO 36 (6-25); CALCIUM 7.4 mg/dL (8.4-10.2); CARBON DIOXIDE 25 mmol/L (22-29); CHLORIDE 102 mmol/L (98-107); CREATININE, SERUM 0.73 mg/dL (0.57-1.11); EST GLOMERULAR FILTRATION RATE > 60 ML/MIN (60-); GLUCOSE 117 mg/dL (74-118); POTASSIUM 3.2 mmol/L (3.5-5.1); SODIUM 136 mmol/L (136-145)
[2020-09-28] MEDS: PIPERACILLIN/TAZOBACTAM 3.375 GM in SODIUM CHLORIDE 0.9% 50ML 50 ML IV SCH ×3 (06:56→21:30)
[2020-09-28] MEDS: LEVOTHYROXINE SODIUM 50 MCG TAB PO SCH (06:56)
[2020-09-28] MEDS ORDERED: POTASSIUM CHLORIDE 20MEQ/15ML UDC NG ONE (07:15)
[2020-09-28] MEDS: LEVALBUTEROL HCL SOLN NEBU 0.63 MG/3 ML NEB INH SCH ×5 (08:20→23:10)
[2020-09-28] MEDS: ITRACONAZOLE PO SCH (09:00)
[2020-09-28] MEDS ORDERED: ITRACONAZOLE 100 MG CAP PO SCH (09:00)
[2020-09-28] MEDS: PANTOPRAZOLE 40 MG 10ML VIAL IV SCH (09:24)
[2020-09-28] MEDS: DOCUSATE SODIUM 100 MG CAP PO SCH (09:25)
[2020-09-28] MEDS: LOSARTAN POTASSIUM 25 MG TAB PO SCH (09:26)
[2020-09-28] MEDS: POLYETHYLENE GLYCOL 3350 17 GM PACK PO SCH (09:26)
[2020-09-28] MEDS: HYDROXYCHLOROQUINE SULFATE 200 MG TAB PO SCH (09:26)
[2020-09-28] MEDS: PREDNISONE 5 MG TAB PO SCH (09:26)
[2020-09-28] MEDS ORDERED: KCL 20 MEQ PACKET/ ORAL SOLN NG ONE (09:30)
[2020-09-28] MEDS: TRAMADOL HCL 50 MG TAB PO PRN (10:02)
[2020-09-28] MEDS: ENOXAPARIN SOD INJ 60 MG/0.6 ML SYR SC SCH ×2 (10:34→21:30)
[2020-09-28] MEDS ORDERED: POLYETHYLENE GLYCOL 3350 17 GM PACK PO PRN (12:45)
[2020-09-28] MEDS: LORAZEPAM 0.5 MG TAB NG PRN (20:18)
[2020-09-29] VITALS (8 sets, daily range): BP systolic 129–164; BP diastolic 50–80
[2020-09-29] MEDS: METOPROLOL TARTRATE 25 MG TAB PO SCH ×4 (01:10→21:40)
[2020-09-29 04:54] LABS: BASOPHILS % 0.2 % (0.0-1.0); EOSINOPHILS % 0.5 % (0.0-6.0); HEMATOCRIT 31.6 % (34.2-44.1); LYMPHOCYTES % 23.4 % (18.0-39.1); MEAN CORPUSCULAR HEMOGLOBIN 30.9 pg (28-32); MEAN CORPUSCULAR HGB CONC 31.6 g/dL (31-35); MEAN CORPUSCULAR VOLUME 97.5 fL (81-99); MONOCYTES # (AUTO) 0.8 (0.2-0.8); MONOCYTES % 9.7 % (4.4-11.3); NEUTROPHILS # (AUTO) 5.5 (2.1-6.9); NEUTROPHILS % 65.8 % (38.7-80.0); PLATELET COUNT 256 x10e3/uL (140-360); RED BLOOD COUNT 3.24 x10e6/uL (3.6-5.1); RED CELL DISTRIBUTION WIDTH 13.9 % (11.7-14.4)
[2020-09-29 05:19] LABS: ANION GAP 13.9 mmol/L (8-16); BLOOD UREA NITROGEN 34 mg/dL (7-26); BUN/CREATININE RATIO 45 (6-25); CALCIUM 8.1 mg/dL (8.4-10.2); CARBON DIOXIDE 25 mmol/L (22-29); CHLORIDE 107 mmol/L (98-107); CREATININE, SERUM 0.75 mg/dL (0.57-1.11); EST GLOMERULAR FILTRATION RATE > 60 ML/MIN (60-); GLUCOSE 88 mg/dL (74-118); MAGNESIUM 2.2 MG/DL (1.3-2.1); POTASSIUM 3.9 mmol/L (3.5-5.1); SODIUM 142 mmol/L (136-145)
[2020-09-29] MEDS: PIPERACILLIN/TAZOBACTAM 3.375 GM in SODIUM CHLORIDE 0.9% 50ML 50 ML IV SCH ×3 (05:27→21:40)
[2020-09-29] MEDS: LORAZEPAM 0.5 MG TAB NG PRN (05:32)
[2020-09-29] MEDS: LEVOTHYROXINE SODIUM 50 MCG TAB PO SCH (05:32)
[2020-09-29] MEDS: TRAMADOL HCL 50 MG TAB PO PRN ×2 (05:32→12:03)
[2020-09-29] MEDS: LEVALBUTEROL HCL SOLN NEBU 0.63 MG/3 ML NEB INH SCH ×5 (07:34→23:05)
[2020-09-29] MEDS: PANTOPRAZOLE 40 MG 10ML VIAL IV SCH (08:54)
[2020-09-29] MEDS: HYDROXYCHLOROQUINE SULFATE 200 MG TAB PO SCH (08:55)
[2020-09-29] MEDS: ITRACONAZOLE PO SCH (08:55)
[2020-09-29] MEDS: PREDNISONE 5 MG TAB PO SCH (08:55)
[2020-09-29] MEDS: LOSARTAN POTASSIUM 25 MG TAB PO SCH (08:55)
[2020-09-29] MEDS: ENOXAPARIN SOD INJ 60 MG/0.6 ML SYR SC SCH ×2 (08:58→20:33)
[2020-09-29] MEDS ORDERED: POTASSIUM CHLORIDE 10MEQ EA PO ONE (11:45)
[2020-09-29] MEDS: METOCLOPRAMIDE HCL 10 MG TAB PO SCH ×2 (12:03→17:26)
[2020-09-29] MEDS: MORPHINE SULFATE INJ 4 MG/ML INJ 1ML IV PRN (14:03)
[2020-09-29] MEDS ORDERED: POTASSIUM PHOSPHATE 15 MM in SODIUM CHLORIDE 0.9% 250ML 250 ML IV ONE (15:30)
[2020-09-30] VITALS (8 sets, daily range): BP systolic 117–189; BP diastolic 51–106
[2020-09-30] MEDS: METOCLOPRAMIDE HCL 10 MG TAB PO SCH ×5 (00:24→23:55)
[2020-09-30] MEDS: METOPROLOL TARTRATE 25 MG TAB PO SCH ×3 (02:30→14:30)
[2020-09-30] MEDS: TRAMADOL HCL 50 MG TAB PO PRN (04:07)
[2020-09-30 05:10] LABS: BASOPHILS % 0.2 % (0.0-1.0); EOSINOPHILS % 0.2 % (0.0-6.0); HEMATOCRIT 32.3 % (34.2-44.1); HEMOGLOBIN 10.2 g/dL (12.0-16.0); LYMPHOCYTES # (AUTO) 1.7 (1.0-3.2); LYMPHOCYTES % 18.4 % (18.0-39.1); MEAN CORPUSCULAR HEMOGLOBIN 31.1 pg (28-32); MEAN CORPUSCULAR HGB CONC 31.6 g/dL (31-35); MEAN CORPUSCULAR VOLUME 98.5 fL (81-99); MONOCYTES # (AUTO) 0.9 (0.2-0.8); MONOCYTES % 9.5 % (4.4-11.3); NEUTROPHILS # (AUTO) 6.7 (2.1-6.9); NEUTROPHILS % 71.1 % (38.7-80.0); PLATELET COUNT 274 x10e3/uL (140-360); RED BLOOD COUNT 3.28 x10e6/uL (3.6-5.1); RED CELL DISTRIBUTION WIDTH 13.9 % (11.7-14.4)
[2020-09-30] MEDS: PIPERACILLIN/TAZOBACTAM 3.375 GM in SODIUM CHLORIDE 0.9% 50ML 50 ML IV SCH ×3 (05:25→22:30)
[2020-09-30] MEDS: LEVOTHYROXINE SODIUM 50 MCG TAB PO SCH (05:25)
[2020-09-30 05:28] LABS: BLOOD UREA NITROGEN 26 mg/dL (7-26); BUN/CREATININE RATIO 35 (6-25); CALCIUM 7.9 mg/dL (8.4-10.2); CARBON DIOXIDE 23 mmol/L (22-29); CHLORIDE 108 mmol/L (98-107); CREATININE, SERUM 0.74 mg/dL (0.57-1.11); EST GLOMERULAR FILTRATION RATE > 60 ML/MIN (60-); GLUCOSE 80 mg/dL (74-118); MAGNESIUM 2.2 MG/DL (1.3-2.1); PHOSPHORUS 2.3 MG/DL (2.3-4.7); SODIUM 142 mmol/L (136-145)
[2020-09-30] MEDS: LEVALBUTEROL HCL SOLN NEBU 0.63 MG/3 ML NEB INH SCH ×5 (07:35→20:00)
[2020-09-30] MEDS: ITRACONAZOLE PO SCH (09:00)
[2020-09-30] MEDS ORDERED: FUROSEMIDE 40 MG TAB PO ONE (09:15)
[2020-09-30] MEDS ORDERED: DIPHENOXYLATE/ATROPINE TAB PO PRN (09:45)
[2020-09-30] MEDS: PANTOPRAZOLE 40 MG 10ML VIAL IV SCH (10:01)
[2020-09-30] MEDS: LOSARTAN POTASSIUM 25 MG TAB PO SCH (10:01)
[2020-09-30] MEDS: PREDNISONE 5 MG TAB PO SCH (10:01)
[2020-09-30] MEDS: ENOXAPARIN SOD INJ 60 MG/0.6 ML SYR SC SCH ×2 (10:01→22:30)
[2020-09-30] MEDS: HYDROXYCHLOROQUINE SULFATE 200 MG TAB PO SCH (10:01)
[2020-09-30] MEDS ORDERED: BENZONATATE 100 MG CAP PO PRN (10:30)
[2020-09-30] MEDS: CHOLESTYRAMINE 4 GM PACKET PO SCH ×4 (10:45→20:40)
[2020-09-30] MEDS: LORAZEPAM 0.5 MG TAB NG PRN (12:22)
[2020-09-30] MEDS: FUROSEMIDE INJ 10 MG/ML 2 ML VIAL IV SCH (18:32)
[2020-09-30] MEDS: METOPROLOL TARTRATE 50 MG TAB PO SCH (20:40)
[2020-09-30] MEDS: MORPHINE SULFATE INJ 4 MG/ML INJ 1ML IV PRN (22:27)
[2020-10-01] VITALS (8 sets, daily range): BP systolic 152–174; BP diastolic 56–98
[2020-10-01 04:47] LABS: BASOPHILS % 0.1 % (0.0-1.0); EOSINOPHILS % 0.2 % (0.0-6.0); HEMATOCRIT 32.1 % (34.2-44.1); HEMOGLOBIN 10.7 g/dL (12.0-16.0); LYMPHOCYTES # (AUTO) 2.2 (1.0-3.2); MEAN CORPUSCULAR HEMOGLOBIN 31.4 pg (28-32); MEAN CORPUSCULAR HGB CONC 33.3 g/dL (31-35); MEAN CORPUSCULAR VOLUME 94.1 fL (81-99); MONOCYTES % 8.4 % (4.4-11.3); NEUTROPHILS # (AUTO) 8.8 (2.1-6.9); NEUTROPHILS % 72.4 % (38.7-80.0); PLATELET COUNT 312 x10e3/uL (140-360); RED BLOOD COUNT 3.41 x10e6/uL (3.6-5.1); RED CELL DISTRIBUTION WIDTH 13.6 % (11.7-14.4)
[2020-10-01 05:08] LABS: ANION GAP 14.7 mmol/L (8-16); BLOOD UREA NITROGEN 20 mg/dL (7-26); BUN/CREATININE RATIO 27 (6-25); CALCIUM 7.9 mg/dL (8.4-10.2); CARBON DIOXIDE 24 mmol/L (22-29); CHLORIDE 105 mmol/L (98-107); CREATININE, SERUM 0.73 mg/dL (0.57-1.11); EST GLOMERULAR FILTRATION RATE > 60 ML/MIN (60-); GLUCOSE 83 mg/dL (74-118); MAGNESIUM 2.1 MG/DL (1.3-2.1); PHOSPHORUS 2.5 MG/DL (2.3-4.7); POTASSIUM 3.7 mmol/L (3.5-5.1); SODIUM 140 mmol/L (136-145)
[2020-10-01] MEDS: LEVOTHYROXINE SODIUM 50 MCG TAB PO SCH (05:55)
[2020-10-01] MEDS: LOSARTAN POTASSIUM 25 MG TAB PO SCH ×2 (05:55→08:47)
[2020-10-01] MEDS: METOCLOPRAMIDE HCL 10 MG TAB PO SCH ×3 (05:55→20:10)
[2020-10-01] MEDS: PIPERACILLIN/TAZOBACTAM 3.375 GM in SODIUM CHLORIDE 0.9% 50ML 50 ML IV SCH ×3 (05:55→22:00)
[2020-10-01] MEDS: FUROSEMIDE INJ 10 MG/ML 2 ML VIAL IV SCH ×2 (05:55→17:10)
[2020-10-01] MEDS: LEVALBUTEROL HCL SOLN NEBU 0.63 MG/3 ML NEB INH SCH ×5 (07:22→22:00)
[2020-10-01] MEDS: METOPROLOL TARTRATE 50 MG TAB PO SCH ×2 (08:48→20:10)
[2020-10-01] MEDS: HYDROXYCHLOROQUINE SULFATE 200 MG TAB PO SCH (08:48)
[2020-10-01] MEDS: METOPROLOL TARTRATE INJ 1 MG/ML VIAL IV PRN (09:10)
[2020-10-01] MEDS: PANTOPRAZOLE 40 MG 10ML VIAL IV SCH (09:10)
[2020-10-01] MEDS: CHOLESTYRAMINE 4 GM PACKET PO SCH ×4 (09:11→20:50)
[2020-10-01] MEDS: MORPHINE SULFATE INJ 4 MG/ML INJ 1ML IV PRN ×2 (09:13→20:10)
[2020-10-01] MEDS: ENOXAPARIN SOD INJ 60 MG/0.6 ML SYR SC SCH ×2 (09:22→22:00)
[2020-10-01] MEDS ORDERED: METOPROLOL TARTRATE INJ 1 MG/ML VIAL IV ONE (11:00)
[2020-10-01] MEDS: AMIODARONE HCL 200 MG TAB PO SCH ×2 (11:00→20:10)
[2020-10-01] MEDS ORDERED: METOPROLOL TARTRATE INJ 1 MG/ML VIAL IV STA (14:41)
[2020-10-01] MEDS: ITRACONAZOLE PO SCH (14:58)
[2020-10-01] MEDS ORDERED: DIGOXIN INJ 0.25 MG/ML 2 ML AMP IV NR (15:45)
[2020-10-01] MEDS ORDERED: DIGOXIN INJ 0.25 MG/ML 2 ML AMP IV ONE (15:45)
[2020-10-01] MEDS ORDERED: METOPROLOL TARTRATE INJ 1 MG/ML VIAL IV PRN (23:30)
[2020-10-02] VITALS (10 sets, daily range): BP systolic 151–193; BP diastolic 51–89
[2020-10-02 05:37] LABS: BASOPHILS % 0.1 % (0.0-1.0); EOSINOPHILS % 0.2 % (0.0-6.0); HEMATOCRIT 30.6 % (34.2-44.1); HEMOGLOBIN 10.1 g/dL (12.0-16.0); LYMPHOCYTES # (AUTO) 1.4 (1.0-3.2); LYMPHOCYTES % 16.1 % (18.0-39.1); MEAN CORPUSCULAR HEMOGLOBIN 31.2 pg (28-32); MEAN CORPUSCULAR VOLUME 94.4 fL (81-99); MONOCYTES # (AUTO) 0.8 (0.2-0.8); MONOCYTES % 9.5 % (4.4-11.3); NEUTROPHILS # (AUTO) 6.5 (2.1-6.9); NEUTROPHILS % 73.5 % (38.7-80.0); PLATELET COUNT 313 x10e3/uL (140-360); RED BLOOD COUNT 3.24 x10e6/uL (3.6-5.1); RED CELL DISTRIBUTION WIDTH 13.4 % (11.7-14.4)
[2020-10-02] MEDS: LEVALBUTEROL HCL SOLN NEBU 0.63 MG/3 ML NEB INH SCH ×5 (06:00→22:00)
[2020-10-02] MEDS: FUROSEMIDE INJ 10 MG/ML 2 ML VIAL IV SCH ×2 (06:10→18:00)
[2020-10-02] MEDS: PIPERACILLIN/TAZOBACTAM 3.375 GM in SODIUM CHLORIDE 0.9% 50ML 50 ML IV SCH (06:10)
[2020-10-02] MEDS: LEVOTHYROXINE SODIUM 50 MCG TAB PO SCH (06:10)
[2020-10-02 06:28] LABS: ANION GAP 15.2 mmol/L (8-16); BLOOD UREA NITROGEN 15 mg/dL (7-26); BUN/CREATININE RATIO 22 (6-25); CALCIUM 7.4 mg/dL (8.4-10.2); CARBON DIOXIDE 25 mmol/L (22-29); CHLORIDE 103 mmol/L (98-107); CREATININE, SERUM 0.69 mg/dL (0.57-1.11); EST GLOMERULAR FILTRATION RATE > 60 ML/MIN (60-); GLUCOSE 78 mg/dL (74-118); POTASSIUM 3.2 mmol/L (3.5-5.1); SODIUM 140 mmol/L (136-145)
[2020-10-02] MEDS: ITRACONAZOLE PO SCH (09:38)
[2020-10-02] MEDS: PANTOPRAZOLE 40 MG 10ML VIAL IV SCH (09:39)
[2020-10-02] MEDS: AMIODARONE HCL 200 MG TAB PO SCH (09:39)
[2020-10-02] MEDS: LOSARTAN POTASSIUM 25 MG TAB PO SCH (09:39)
[2020-10-02] MEDS: METOPROLOL TARTRATE 50 MG TAB PO SCH (09:45)
[2020-10-02] MEDS: METOCLOPRAMIDE HCL 10 MG TAB PO SCH ×2 (09:45→21:36)
[2020-10-02] MEDS: HYDROXYCHLOROQUINE SULFATE 200 MG TAB PO SCH (09:45)
[2020-10-02] MEDS: CHOLESTYRAMINE 4 GM PACKET PO SCH ×4 (09:45→21:36)
[2020-10-02] MEDS: ENOXAPARIN SOD INJ 60 MG/0.6 ML SYR SC SCH (09:45)
[2020-10-02] MEDS ORDERED: METOPROLOL TARTRATE 50 MG TAB PO ONE (11:45)
[2020-10-02] MEDS ORDERED: POTASSIUM CHLORIDE 20 MEQ TAB CR PO ONE (12:00)
[2020-10-02] MEDS: DIGOXIN 0.125 MG TAB PO SCH (12:15)
[2020-10-02] MEDS ORDERED: HYDRALAZINE HCL 20 MG/ML VIAL IV PRN (14:30)
[2020-10-02] MEDS ORDERED: METOPROLOL SUCCINATE 50 MG TAB XL PO ONE (17:00)
[2020-10-02] MEDS: METOPROLOL SUCCINATE 50 MG TAB XL PO SCH (17:00)
[2020-10-02] MEDS: MORPHINE SULFATE INJ 4 MG/ML INJ 1ML IV PRN (20:07)
[2020-10-03] VITALS (7 sets, daily range): BP systolic 156–170; BP diastolic 47–61
[2020-10-03] MEDS: MORPHINE SULFATE INJ 4 MG/ML INJ 1ML IV PRN ×3 (03:15→20:44)
[2020-10-03] MEDS: FUROSEMIDE INJ 10 MG/ML 2 ML VIAL IV SCH ×2 (05:49→17:12)
[2020-10-03] MEDS: LEVOTHYROXINE SODIUM 50 MCG TAB PO SCH (05:49)
[2020-10-03] MEDS: LEVALBUTEROL HCL SOLN NEBU 0.63 MG/3 ML NEB INH SCH ×5 (07:00→22:00)
[2020-10-03] MEDS: DIGOXIN 0.125 MG TAB PO SCH (07:47)
[2020-10-03] MEDS: LOSARTAN POTASSIUM 25 MG TAB PO SCH (07:47)
[2020-10-03] MEDS: PANTOPRAZOLE 40 MG 10ML VIAL IV SCH (07:47)
[2020-10-03] MEDS: METOCLOPRAMIDE HCL 10 MG TAB PO SCH ×2 (07:48→20:44)
[2020-10-03] MEDS: METOPROLOL SUCCINATE 50 MG TAB XL PO SCH ×2 (07:48→17:12)
[2020-10-03] MEDS: CHOLESTYRAMINE 4 GM PACKET PO SCH ×4 (07:48→20:44)
[2020-10-03] MEDS: HYDROXYCHLOROQUINE SULFATE 200 MG TAB PO SCH (07:51)
[2020-10-03] MEDS ORDERED: POTASSIUM CHLORIDE 20 MEQ TAB CR PO ONE (13:00)
[2020-10-03] MEDS: LORAZEPAM 0.5 MG TAB NG PRN (17:13)
[2020-10-03] MEDS ORDERED: LORAZEPAM 0.5 MG TAB PO PRN (21:00)
[2020-10-04] VITALS (8 sets, daily range): BP systolic 136–159; BP diastolic 53–80
[2020-10-04] MEDS: MORPHINE SULFATE INJ 4 MG/ML INJ 1ML IV PRN ×2 (02:21→10:15)
[2020-10-04] MEDS: LEVOTHYROXINE SODIUM 50 MCG TAB PO SCH (06:14)
[2020-10-04] MEDS: FUROSEMIDE INJ 10 MG/ML 2 ML VIAL IV SCH ×2 (06:14→18:13)
[2020-10-04 06:38] LABS: ANION GAP 14.4 mmol/L (8-16); BLOOD UREA NITROGEN 15 mg/dL (7-26); BUN/CREATININE RATIO 24 (6-25); CALCIUM 8.1 mg/dL (8.4-10.2); CARBON DIOXIDE 24 mmol/L (22-29); CHLORIDE 104 mmol/L (98-107); CREATININE, SERUM 0.63 mg/dL (0.57-1.11); EST GLOMERULAR FILTRATION RATE > 60 ML/MIN (60-); GLUCOSE 85 mg/dL (74-118); POTASSIUM 3.4 mmol/L (3.5-5.1); SODIUM 139 mmol/L (136-145)
[2020-10-04] MEDS: LEVALBUTEROL HCL SOLN NEBU 0.63 MG/3 ML NEB INH SCH ×4 (06:55→19:55)
[2020-10-04] MEDS: LOSARTAN POTASSIUM 25 MG TAB PO SCH (07:29)
[2020-10-04] MEDS: METOPROLOL SUCCINATE 50 MG TAB XL PO SCH ×2 (07:30→16:33)
[2020-10-04] MEDS: METOCLOPRAMIDE HCL 10 MG TAB PO SCH ×2 (07:30→19:46)
[2020-10-04] MEDS: DIGOXIN 0.125 MG TAB PO SCH (07:30)
[2020-10-04] MEDS: PANTOPRAZOLE 40 MG 10ML VIAL IV SCH (07:31)
[2020-10-04] MEDS: CHOLESTYRAMINE 4 GM PACKET PO SCH ×4 (07:31→21:00)
[2020-10-04] MEDS ORDERED: LORAZEPAM 0.5 MG TAB PO PRN (12:30)
[2020-10-04] MEDS ORDERED: POTASSIUM CHLORIDE 20 MEQ TAB CR PO ONE (13:00)
[2020-10-04] MEDS: TRAMADOL HCL 50 MG TAB PO PRN ×2 (15:26→21:53)
[2020-10-04] MEDS ORDERED: ENOXAPARIN SOD INJ 40 MG/0.4 ML SYR SC SCH (17:00)
[2020-10-04] MEDS: DILTIAZEM HCL CR 120MG TAB PO SCH (19:43)
[2020-10-05] VITALS (7 sets, daily range): BP systolic 117–136; BP diastolic 37–60
[2020-10-05] MEDS: TRAMADOL HCL 50 MG TAB PO PRN ×3 (03:54→23:12)
[2020-10-05] MEDS: FUROSEMIDE INJ 10 MG/ML 2 ML VIAL IV SCH ×2 (06:06→17:12)
[2020-10-05] MEDS: LEVOTHYROXINE SODIUM 50 MCG TAB PO SCH (06:06)
[2020-10-05 06:25] LABS: BASOPHILS % 0.4 % (0.0-1.0); EOSINOPHILS # (AUTO) 0.1 (0.0-0.4); EOSINOPHILS % 0.8 % (0.0-6.0); HEMATOCRIT 32.6 % (34.2-44.1); HEMOGLOBIN 10.9 g/dL (12.0-16.0); LYMPHOCYTES # (AUTO) 1.7 (1.0-3.2); LYMPHOCYTES % 18.2 % (18.0-39.1); MEAN CORPUSCULAR HEMOGLOBIN 30.7 pg (28-32); MEAN CORPUSCULAR HGB CONC 33.4 g/dL (31-35); MEAN CORPUSCULAR VOLUME 91.8 fL (81-99); MONOCYTES # (AUTO) 1.1 (0.2-0.8); MONOCYTES % 11.8 % (4.4-11.3); NEUTROPHILS # (AUTO) 6.3 (2.1-6.9); NEUTROPHILS % 67.6 % (38.7-80.0); PLATELET COUNT 371 x10e3/uL (140-360); RED BLOOD COUNT 3.55 x10e6/uL (3.6-5.1); RED CELL DISTRIBUTION WIDTH 13.3 % (11.7-14.4)
[2020-10-05 06:59] LABS: ANION GAP 14.7 mmol/L (8-16); BLOOD UREA NITROGEN 15 mg/dL (7-26); BUN/CREATININE RATIO 19 (6-25); CALCIUM 7.7 mg/dL (8.4-10.2); CARBON DIOXIDE 25 mmol/L (22-29); CHLORIDE 102 mmol/L (98-107); CREATININE, SERUM 0.78 mg/dL (0.57-1.11); EST GLOMERULAR FILTRATION RATE > 60 ML/MIN (60-); GLUCOSE 84 mg/dL (74-118); MAGNESIUM 1.7 MG/DL (1.3-2.1); POTASSIUM 3.7 mmol/L (3.5-5.1); SODIUM 138 mmol/L (136-145)
[2020-10-05] MEDS: LEVALBUTEROL HCL SOLN NEBU 0.63 MG/3 ML NEB INH SCH ×5 (07:15→22:00)
[2020-10-05] MEDS: DILTIAZEM HCL CR 120MG TAB PO SCH (09:22)
[2020-10-05] MEDS: LOSARTAN POTASSIUM 25 MG TAB PO SCH (09:22)
[2020-10-05] MEDS: PANTOPRAZOLE 40 MG 10ML VIAL IV SCH (09:22)
[2020-10-05] MEDS: METOCLOPRAMIDE HCL 10 MG TAB PO SCH (09:22)
[2020-10-05] MEDS: METOPROLOL SUCCINATE 50 MG TAB XL PO SCH ×2 (09:22→17:11)
[2020-10-05] MEDS: CHOLESTYRAMINE 4 GM PACKET PO SCH (10:15)
[2020-10-05] MEDS: DIGOXIN 0.125 MG TAB PO SCH (11:00)
[2020-10-05] MEDS: APIXABAN 5 MG TABLET PO SCH (17:11)
[2020-10-06] VITALS: BP 132/44
[2020-10-06 04:00] VITALS: BP 146/51
[2020-10-06] MEDS: TRAMADOL HCL 50 MG TAB PO PRN ×3 (05:12→16:43)
[2020-10-06] MEDS: FUROSEMIDE INJ 10 MG/ML 2 ML VIAL IV SCH (05:34)
[2020-10-06] MEDS: LEVOTHYROXINE SODIUM 50 MCG TAB PO SCH (05:34)
[2020-10-06] MEDS: LEVALBUTEROL HCL SOLN NEBU 0.63 MG/3 ML NEB INH SCH ×3 (07:11→15:15)
[2020-10-06 07:49] VITALS: BP 136/40
[2020-10-06 08:49] VITALS: BP 136/40
[2020-10-06] MEDS ORDERED: HYDROXYCHLOROQUINE SULFATE 200 MG TAB PO SCH (09:00)
[2020-10-06] MEDS ORDERED: LORATADINE 10 MG TAB PO SCH (09:00)
[2020-10-06] MEDS ORDERED: PREDNISONE 10 MG TAB PO SCH (09:00)
[2020-10-06] MEDS: PANTOPRAZOLE 40 MG 10ML VIAL IV SCH (09:32)
[2020-10-06] MEDS: LOSARTAN POTASSIUM 25 MG TAB PO SCH (09:32)
[2020-10-06] MEDS: APIXABAN 5 MG TABLET PO SCH (09:33)
[2020-10-06] MEDS: METOPROLOL SUCCINATE 50 MG TAB XL PO SCH (09:36)
[2020-10-06] MEDS: DIGOXIN 0.125 MG TAB PO SCH (09:45)
[2020-10-06 10:54] VITALS: BP 139/45
[2020-10-06 16:35] VITALS: BP 116/88
== END 2020-10-06 17:08 | DRG 871 ==
LOC: ER 12:15 → ERHOLD 15:23 → MED/SURG3 18:25 → OBSVTOIN 09-23 15:14 → ICU 09-25 18:10 → MED/SURG3 09-25 20:27
PROVIDERS: ADMIT Internal Medicine; ATTEND Internal Medicine
DX: A41.9 Sepsis, unspecified organism (principal); I50.31 Acute diastolic (congestive) heart failure; J69.0 Pneumonitis due to inhalation of food and vomit; J96.01 Acute respiratory failure with hypoxia; N39.0 Urinary tract infection, site not specified; E87.1 Hypo-osmolality and hyponatremia; I11.0 Hypertensive heart disease with heart failure; I48.0 Paroxysmal atrial fibrillation; E83.42 Hypomagnesemia; K21.9 Gastro-esophageal reflux disease without esophagitis; Z20.822 Contact with and (suspected) exposure to COVID-19; J43.2 Centrilobular emphysema; M06.9 Rheumatoid arthritis, unspecified; E03.9 Hypothyroidism, unspecified; B36.9 Superficial mycosis, unspecified; F32.9 Major depressive disorder, single episode, unspecified; F41.9 Anxiety disorder, unspecified; K52.9 Noninfective gastroenteritis and colitis, unspecified
CPT/HCPCS: 36415; 71045; 71046; 71250; 74018; 74177; 74230; 80048; 80053; 81001; 82948; 83690; 83735; 83880; 84100; 84443; 84484; 85025; 87086; 87493; 93005; 93306; 94640; 96361; 97139; 99284; G0378; J0360; J0500; J0696; J1160; J1650; J1940; J2270; J2405; J2543; J3010; J3475; J7030; J7050; J7512; Q0162; Q9967; U0002